=== PATIENT | male | born 1990 | race Two or more races ===

== ENCOUNTER 2017-03-14 15:20 | Emergency (ER) | payer OTHER ==
[~2017-03-14] VITALS: Ht 172.7 cm; Wt 75.0 kg
[2017-03-14 15:41] VITALS: BP 131/85; PULSE 92; RESP 18; TEMP 98.2; O2SAT 97
--- NOTE | 2017-03-14 15:55 | PD ---
HPI Chief Complaint: Psychiatric Symptoms Time Seen by Provider: 15:40 Travel History International Travel<30 days: No Contact w/Intl Traveler<30days: No Traveled to known affect area: No History of Present Illness HPI 27-year-old male with history of PTSD and depression presents under Russo act initially by his primary care physician at the [facility]. The patient reports that he went to the [facility] today to get a referral to a psychologist. He was Russo acted by the primary care physician. He endorses occasional passive thoughts of self- harm but not currently. He denies any plan. He denies any axis the arms. he denies any homicidal ideation, auditory or visual hallucination, drug or alcohol use. He currently sees a psychiatrist, as currently prescribed Depakote , Topamax and prazosin. He reports chronic neck/back/knee pain for which she sees a paint mixer machine. He has no other complaints at this time. [facility] Past Medical History Narrative Medical History of PTSD, depression Social History Alcohol Use: No Tobacco Use: No Substance Use: No Allergies-Medications (Allergen,Severity, Reaction): Coded Allergies: No Known Allergies (Unverified , 03/14/17) Review of Systems Except as stated in HPI: all other systems reviewed are Neg Physical Exam Narrative GENERAL: Well-developed well-nourished male in no acute distress SKIN: Warm and dry. HEAD: Atraumatic. Normocephalic. EYES: Pupils equal and round. No scleral icterus. No injection or drainage. ENT: No nasal bleeding or discharge. Mucous membranes pink and moist. NECK: Trachea midline. No JVD. CARDIOVASCULAR: Regular rate and rhythm. No murmur appreciated. RESPIRATORY: No accessory muscle use. Clear to auscultation. Breath sounds equal bilaterally. GASTROINTESTINAL: Abdomen soft, non-tender, nondistended. Hepatic and splenic margins not palpable. MUSCULOSKELETAL: No obvious deformities. No edema. NEUROLOGICAL: Awake and alert. No obvious cranial nerve deficits. Motor grossly within normal limits. Normal speech. PSYCHIATRIC: Appropriate mood and affect; insight and judgment normal. Data Data Last Documented VS Vital Signs Date Time Temp Pulse Resp B/P Pulse Ox O2 Delivery O2 Flow Rate FiO2 03/14/17 15:41 98.2 92 18 131/85 97 Orders Psych Screen (03/14/17 15:52) MDM Medical Decision Making Medical Screen Exam Complete: Yes Emergency Medical Condition: Yes Medical Record Reviewed: Yes Differential Diagnosis Major depressive disorder, depressive disorder not otherwise specified, acute psychosis, adjustment reaction, substance induced mood disorder Narrative Course 27-year-old male presents under Russo act for psychiatric evaluation. Mental health screening discussed with the patient. Psychiatric screen ordered. He has no medical complaints. He is medically cleared for psychiatric disposition. Diagnosis Primary Impression: Depression Qualified Code: F32.9 - Depression, unspecified depression type Tiago Barnett Mar 14, 2017 15:54
--- NOTE | 2017-03-14 16:32 | PD ---
History of Present Illness Chief Complaint: Psychiatric Symptoms Time Seen by Provider: 16:30 Travel History International Travel<30 Days: No Contact w/Intl Traveler<30days: No Known affected area: No Legal Status Legal Status: Russo Act Russo Act Signed By: History of Present Illness: This is a 27-year-old male who was Russo acted by his primary care physician at the [facility] due to suicidal ideation. Patient describes a history of intermittent suicidal thinking but denies being currently suicidal. In fact, he currently denies any suicidal or homicidal ideation, plan or intent. He went to the [facility] today to obtain a referral for psychological therapy in the [facility]. The patient admits to a history of chronic posttraumatic stress disorder and a history of previous suicide attempts. However, he is calm , pleasant and cooperative. He denies any illicit drug or alcohol use. His cognition is intact. He is verbally dunia for safety. He is future oriented in his thinking and would like cognitive behavioral therapy. This physician provided him with a referral to Dr. Yonathan George in the [facility]. The patient is verbally dunia for safety. He has no psychotic symptoms. PFSH Past Medical History Medical History: Denies Significant Hx Psychiatric History Psychiatric History Hx Psychiatric Treatment: Currently being treated by a psychiatrist at the [facility]. Although he states he is not satisfied with this treatment, he does not wish to change psychiatrists. History of Inpatient Treatment: Yes Guns or firearms in home: No Social History Hx Alcohol Use: No Hx Tobacco Use: No Hx Substance Use: No Hx of Substance Use Treatment: No Allergies-Medications (Allergen,Severity, Reaction): Coded Allergies: No Known Allergies (Unverified , 03/14/17) Review of Systems Except as stated in HPI: all other systems reviewed are Neg Exam Alert: Yes Stanley: Person, Place, Date, Situation Mood: Calm Affect: Appropriate Speech: Clear, Logical Eye Contact: Normal Memory Intact: Immediate, Recent, Remote Delusions: No Insight/Judgement Adequate MDM Medical Decision Making Medical Record Reviewed: Yes Assessment/Plan 27-year-old male currently being treated at the [facility] for symptoms of posttraumatic stress disorder and depression. Patient is having difficulty adjusting to his current circumstances. He is however denying suicidal or homicidal ideation, plan or intent at this time. As least restrictive alternative applies, this physician lifted his Russo act and provided him with a referral to Dr. Yonathan Lind. This physician offered medication management but the patient wants to wait until he sees his psychiatrist once again. This physician offered a referral to a local psychiatrist but the patient wants to return to the [place]. Patient is competent to contract for safety and he did so. Orders Psych Screen (03/14/17 15:52) Results Vital Signs Date Time Temp Pulse Resp B/P Pulse Ox O2 Delivery O2 Flow Rate FiO2 03/14/17 15:41 98.2 92 18 131/85 97 Diagnosis Primary Impression: Adjustment disorder with depressed mood Additional Impression: Chronic posttraumatic stress disorder Problem Qualifiers Rudolph Aguirre MD Mar 14, 2017 16:32
== END 2017-03-14 17:06 | disposition home or self-care (01) ==
LOC: NEDAMB 15:20
DX: F43.21 Adjustment disorder with depressed mood (principal); F43.12 Post-traumatic stress disorder, chronic; F32.9 Major depressive disorder, single episode, unspecified
CPT/HCPCS: 99283